=== PATIENT | female | born 1990 | race Caucasian/White ===

== ENCOUNTER 2018-07-25 20:15 | Emergency (ER) | payer SELFPAY ==
[~2018-07-25] VITALS: Ht 160 cm; Wt 93.7 kg
[2018-07-25] MEDS ORDERED: HYDROcodone/APAP 5/325 TABLET PO STA (20:45)
[2018-07-25] MEDS ORDERED: HYDROcodone/APAP 5/325 TABLET ONE (20:48)
[2018-07-25] MEDS ORDERED: DIAZEPAM 5 MG TABLET ONE (20:48)
[2018-07-25] MEDS ORDERED: DIAZEPAM 5 MG TABLET PO ONE (21:00)
[2018-07-25 21:42] VITALS: BP 121/72
[2018-07-25] MEDS ORDERED: OXYcodone/APAP 5/325MG TABLET ONE (22:27)
[2018-07-25] MEDS ORDERED: OXYcodone/APAP 5/325MG TABLET PO ONE (22:30)
== END 2018-07-25 22:45 | disposition home or self-care (01) ==
LOC: ED 22:39
DX: S22.060A Wedge compression fracture of T7-T8 vertebra, initial encounter for closed fracture (principal); S22.050A Wedge compression fracture of T5-T6 vertebra, initial encounter for closed fracture; V49.49XA Driver injured in collision with other motor vehicles in traffic accident, initial encounter; Y93.89 Activity, other specified; Y92.89 Other specified places as the place of occurrence of the external cause; Y99.8 Other external cause status
CPT/HCPCS: 72072; 72128; 99284

== ENCOUNTER 2019-09-29 09:54 | Emergency (ER) | payer MEDICAID ==
[~2019-09-29] VITALS: Ht 160 cm; Wt 91.6 kg
[2019-09-29 10:07] VITALS: BP 142/95
--- NOTE | 2019-09-29 10:45 | NUR ---
AWAIITN UA/XR RESTULS.
[2019-09-29 10:59] LABS: MICROSCOPIC INDICATED
[2019-09-29 11:15] LABS: CULTURE INDICATED? YES
[2019-09-29] MEDS ORDERED: METHOCARBAMOL 750 MG TABLET ONE (11:20)
[2019-09-29] MEDS ORDERED: IBUPROFEN 200 MG TABLET ONE (11:21)
--- NOTE | 2019-09-29 11:24 | NUR ---
MEDS FOR PAIN. AWAITING UA.
[2019-09-29] MEDS ORDERED: METHOCARBAMOL 750 MG TABLET PO ONE (11:30)
[2019-09-29] MEDS ORDERED: IBUPROFEN 600 MG TABLET PO ONE (11:30)
== END 2019-09-29 11:49 | disposition home or self-care (01) ==
LOC: ED 11:43
DX: S22.069A Unspecified fracture of T7-T8 vertebra, initial encounter for closed fracture (principal); S22.059A Unspecified fracture of T5-T6 vertebra, initial encounter for closed fracture; S39.012A Strain of muscle, fascia and tendon of lower back, initial encounter; S29.012A Strain of muscle and tendon of back wall of thorax, initial encounter; N30.00 Acute cystitis without hematuria; F17.200 Nicotine dependence, unspecified, uncomplicated; X58.XXXA Exposure to other specified factors, initial encounter; Y93.89 Activity, other specified; Y92.89 Other specified places as the place of occurrence of the external cause; Y99.8 Other external cause status
CPT/HCPCS: 72072; 72110; 81001; 87086; 99284